=== PATIENT | female | born 1930 | race Caucasian/White ===

== ENCOUNTER 2017-01-22 19:59 | Inpatient (IN) | payer MEDICARE, MEDICAID ==
[~2017-01-22 19:59] MED LIST: ADULT LOW DOSE81 M1 PO; ADVAIR 2501 DISK W/D IH; DIGOXIN125 MC1 PO; FOSAMAX70 MG PO; IPRAT-ALBUT 0.5-3 ML INH; ISOSORBIDE MONO30 M4 PO; LEVOTHROID125 MCG PO; LEVOTHYROXINE137 MC1 PO; LIPITOR80 M1 PO; METOPROLOL SUCC25 M1 PO; METOPROLOL TART50 MG PO; MYLANTA PO; NORCO 10/3251 TA1 PO; OYSTER SHELL C500 M2 PO; PLAVIX75 M1 PO; PLAVIX75 MG PO; PROTONIX40 M1 PO; TUMS300 MG PO; URECHOLINE PO; VITAMIN D1000 UNI3 PO; [UNRECOGNIZED DRUG - OTHER] PO
[2017-01-22] MEDS ORDERED: ADVAIR HFA 1151 PUFF INH (20:54)
[2017-01-22] MEDS ORDERED: MUCINEX1200 MG PO (20:55)
[2017-01-22] MEDS ORDERED: DAILY MULTIPLE1 EAC2 PO (20:56)
[2017-01-22] MEDS ORDERED: POTASSIUM CHLO20 ME3 PO (20:57)
[2017-01-22] MEDS ORDERED: VIBRAMYCIN100 M1 PO (21:00)
[2017-01-22] MEDS ORDERED: DILTIAZEM HCL30 M1 PO (21:01)
[2017-01-22] MEDS ORDERED: ACETAMINOPHEN325 M2 PO (21:02)
[2017-01-22 23:50] LABS: MAGNESIUM 1.9 mg/dl (1.3-2.6)
[2017-01-23 04:36] LABS: BASO % 0.5 % (0-2); EOS % 2.3 % (0-7); EOSINOPHIL ABSOLUTE COUNT 0.1 tho/cmm (0.0-0.7); HCT-HEMATOCRIT 32.6 % (34.0-49.0); HGB-HEMOGLOBIN 9.7 gm/dl (12.0-15.5); IMMATURE GRANULOCYTES ABSOLUTE 0.01 tho/cmm (0-0.03); IMMATURE GRANULOCYTES PERCENT 0.2 % (0-0.3); LYMPH % 11.4 % (20-45); LYMPH ABSOLUTE COUNT 0.6 tho/cmm (0.8-4.5); MCH (MEAN CORPUSCULAR HGB) 25.3 pg (28.0-32.0); MCHC MEAN CORPUSCULAR HGB CONC 29.8 % (32.0-36.0); MCV (MEAN CELL VOLUME) 85.1 fl (82.0-96.0); MEAN PLATELET VOLUME 11.6 cmc (9.4-12.4); MONO % 10.5 % (0-12); MONOCYTE ABSOLUTE COUNT 0.6 tho/cmm (0.0-1.2); NEUTROPHIL ABSOLUTE COUNT 4.2 tho/cmm (1.6-8.0); NEUTROPHIL-AUTOMATED 4.2 tho/cmm (1.6-8.0); NEUTROPHILS % 75.1 % (40-80); PLATELET COUNT 182 tho/cmm (150-450); RED BLOOD COUNT 3.83 mil/cmm (4.00-5.20); RED CELL DISTRIBUTION WIDTH 18.1 % (12.4-16.4); WHITE BLOOD COUNT 5.6 tho/cmm (4.0-10.0)
[2017-01-23 04:48] LABS: ANION GAP 9 mmol/L (0-20); BLOOD UREA NITROGEN 13 mg/dl (6-24); C-REACTIVE PROTEIN 1.2 mg/dl (0-0.9); CALCIUM 8.5 mg/dl (8.5-10.5); CARBON DIOXIDE-VENOUS 38 mmol/L (22-32); CHLORIDE 96 mmol/l (96-110); CREATININE 1.09 mg/dl (0.50-1.10); GLUCOSE 103 mg/dL (70-110); POTASSIUM 3.6 mmol/L (3.7-5.1); SODIUM 139 mmol/L (135-145); eGFR VALUE FOR BLACK 53 mL/Min
[2017-01-23 04:55] LABS: TSH-THYROID STIMULATING HORM. 4.89 uIU/ml (0.40-3.80)
[2017-01-24 06:34] LABS: ANION GAP 8 mmol/L (0-20); BLOOD UREA NITROGEN 14 mg/dl (6-24); CHLORIDE 97 mmol/l (96-110); CREATININE 0.97 mg/dl (0.50-1.10); GLUCOSE 93 mg/dL (70-110); POTASSIUM 3.5 mmol/L (3.7-5.1); SODIUM 141 mmol/L (135-145); eGFR VALUE FOR BLACK 61 mL/Min
[2017-01-24 06:39] LABS: CARBON DIOXIDE-VENOUS 40 mmol/L (22-32)
[2017-01-25 05:20] LABS: ANION GAP 8 mmol/L (0-20); BLOOD UREA NITROGEN 16 mg/dl (6-24); CALCIUM 8.1 mg/dl (8.5-10.5); CARBON DIOXIDE-VENOUS 38 mmol/L (22-32); CHLORIDE 95 mmol/l (96-110); CREATININE 1.13 mg/dl (0.50-1.10); GLUCOSE 101 mg/dL (70-110); SODIUM 136 mmol/L (135-145); eGFR VALUE FOR BLACK 51 mL/Min
[2017-01-25 05:33] LABS: POTASSIUM 5.3 mmol/L (3.7-5.1)
[2017-01-25] MEDS ORDERED: TOPROL XL100 M1 PO (14:22)
[2017-01-25] MEDS ORDERED: AMILORIDE HCL5 M1 PO (14:25)
[2017-01-25] MEDS ORDERED: LASIX40 M1 PO (14:27)
[2017-01-25] MEDS ORDERED: TOPROL XL200 M1 PO (15:12)
== END 2017-01-25 16:24 | disposition home health service (06) | DRG 291 ==
LOC: 5WF 19:59 → PCUA 01-23 15:00
PROVIDERS: Hospitalist; Internal Medicine Cardiovascular Disease; Registered Nurse; ADMIT Hospitalist
PROC: 5A09357 Assistance with Respiratory Ventilation, Less than 24 Consecutive Hours, Continuous Positive Airway Pressure (ICD-10-PCS; principal; 2017-01-23)
DX: I50.33 Acute on chronic diastolic (congestive) heart failure (principal); J18.9 Pneumonia, unspecified organism; J96.21 Acute and chronic respiratory failure with hypoxia; I48.0 Paroxysmal atrial fibrillation; J84.10 Pulmonary fibrosis, unspecified; Z99.81 Dependence on supplemental oxygen; E87.5 Hyperkalemia; I10 Essential (primary) hypertension; E78.5 Hyperlipidemia, unspecified; G25.81 Restless legs syndrome; D64.9 Anemia, unspecified; K21.9 Gastro-esophageal reflux disease without esophagitis; M81.0 Age-related osteoporosis without current pathological fracture; J44.9 Chronic obstructive pulmonary disease, unspecified; M50.30 Other cervical disc degeneration, unspecified cervical region; Z95.1 Presence of aortocoronary bypass graft; Z87.891 Personal history of nicotine dependence; I25.10 Atherosclerotic heart disease of native coronary artery without angina pectoris; Z66 Do not resuscitate; Z92.3 Personal history of irradiation; Z79.82 Long term (current) use of aspirin; I08.0 Rheumatic disorders of both mitral and aortic valves; I25.2 Old myocardial infarction; Z85.118 Personal history of other malignant neoplasm of bronchus and lung; E87.6 Hypokalemia; Z23 Encounter for immunization
CPT/HCPCS: C1751; G0008; J1940; J3475

== ENCOUNTER 2017-03-06 21:55 | Observation (INO) | payer MEDICARE, MEDICAID ==
[~2017-03-06 21:55] MED LIST changes: +ACETAMINOPHEN325 M2 PO; +ADVAIR HFA 1151 PUFF INH; +AMILORIDE HCL5 M1 PO; +DAILY MULTIPLE1 EAC2 PO; +DILTIAZEM HCL30 M1 PO; +LASIX40 M1 PO; +MUCINEX1200 MG PO; +POTASSIUM CHLO20 ME3 PO; +TOPROL XL100 M1 PO; +TOPROL XL200 M1 PO; +VIBRAMYCIN100 M1 PO
[2017-03-06] MEDS ORDERED: CARDIZEM30 M1 PO (23:55)
[2017-03-06] MEDS ORDERED: NORCO 10-325 T1 EACH PO (23:58)
[2017-03-08] MEDS ORDERED: ISOSORBIDE MONO30 M4 PO (11:52)
== END 2017-03-08 18:30 ==
LOC: PCUB 21:55
PROVIDERS: ADMIT Internal Medicine Cardiovascular Disease
DX: I25.110 Atherosclerotic heart disease of native coronary artery with unstable angina pectoris (principal); I48.2 Chronic atrial fibrillation; I12.9 Hypertensive chronic kidney disease with stage 1 through stage 4 chronic kidney disease, or unspecified chronic kidney disease; N18.3 Chronic kidney disease, stage 3 (moderate); E78.5 Hyperlipidemia, unspecified; Z95.1 Presence of aortocoronary bypass graft; J44.9 Chronic obstructive pulmonary disease, unspecified; Z79.899 Other long term (current) drug therapy; Z88.0 Allergy status to penicillin; Z88.6 Allergy status to analgesic agent; Z79.82 Long term (current) use of aspirin
CPT/HCPCS: G0378